=== PATIENT | male | born 1960 | race Caucasian/White ===

== ENCOUNTER 2018-08-01 07:09 | Day surgery (SDC) | payer MEDICAID ==
[~2018-08-01] VITALS: Ht 167.6 cm; Wt 102.1 kg
[2018-08-01] MEDS ORDERED: ATEN25TA7 PO (08:01)
[2018-08-01] MEDS ORDERED: fentaNYL 0.05 MG/ML VIAL ONE (09:10)
[2018-08-01] MEDS ORDERED: LIDOCAINE 2% 100 MG/5 ML UJET TP ONE (09:10)
[2018-08-01] MEDS ORDERED: fentaNYL 0.05 MG/ML VIAL IVP ONE (09:26)
== END 2018-08-01 10:30 | disposition home or self-care (01) ==
LOC: MDS 07:09 → MMU 07:11 → MDS 10:30
PROVIDERS: ATTEND Internal Medicine Gastroenterology
DX: Z12.11 Encounter for screening for malignant neoplasm of colon (principal); D12.5 Benign neoplasm of sigmoid colon; K57.30 Diverticulosis of large intestine without perforation or abscess without bleeding; I10 Essential (primary) hypertension; E66.9 Obesity, unspecified; Z87.891 Personal history of nicotine dependence; Z79.899 Other long term (current) drug therapy; Z68.36 Body mass index [BMI] 36.0-36.9, adult
CPT/HCPCS: 45385; J3010